=== PATIENT | female | born 1960 | race Caucasian/White ===

== ENCOUNTER → 2016-12-19 | Outpatient (CLI) | payer OTHER ==
[~2016-12-19] MED LIST: CALC-214 PO; CLB100 PO; HYDR-5688 PO; HYDR2TAB3 PO; KETO10TA PO; NRN300 PO; OXYC-57 PO; PRMVC; SM350 PO
[2016-12-19 12:06] LABS: BASO % 0.4 %; BASO ABS # 0.03 K/uL (0-0.2); COMPLETE YES; EOS % 2.2 %; HEMATOCRIT 40.1 % (37-47); IG% 0.3 %; LYMPH % 37.8 %; LYMPH ABS # 2.53 K/uL (1.2-3.4); MEAN CELL VOLUME 88.3 fL (80-100); MEAN CORPUSCULAR HEMOGLOBIN 29.3 pg (25-34); MEAN CORPUSCULAR HGB CONC 33.2 g/dl (32-36); MEAN PLATELET VOLUME 10.5 fL (7.4-10.4); NEUT % 52.3 %; PLATELET COUNT 236 K/uL (130-400); RED BLOOD COUNT 4.54 M/uL (4.2-5.4); WHITE BLOOD COUNT 6.69 K/uL (4.8-10.8)
[2016-12-19 12:21] LABS: BLOOD UREA NITROGEN 14 mg/dl (7-18); BUN/CREATININE RATIO 15.6 (10-20); CALCIUM 9.1 mg/dl (8.5-10.1); CARBON DIOXIDE 30 mmol/L (21-32); CHLORIDE 106 mmol/L (98-107); CREATININE 0.88 mg/dl (0.60-1.20); GLUCOSE 72 mg/dl (70-99); POTASSIUM 4.4 mmol/L (3.5-5.1); SODIUM 141 mmol/L (136-145)
== END | disposition home or self-care (01) ==
LOC: C.CPL 09:17
PROVIDERS: ATTEND Orthopaedic Surgery
DX: M75.02 Adhesive capsulitis of left shoulder (principal)

== ENCOUNTER → 2017-01-05 | Day surgery (SDC) | payer OTHER ==
[2016-12-21 11:14] VITALS: Ht 172.7 cm; Wt 65.9 kg
[~2017-01-05] VITALS: Ht 172.7 cm; Wt 65.9 kg
[~2017-01-05] MED LIST changes: +ATROPINE SULFATE 0.1 MG/ML 5ML SYR IV PRN; +BUPIVACAINE/EPINEPHRINE 0.25% 1:200,000 30 ML VIAL ONE; +CEFAZOLIN 2000MG IV PUSH 10 ML IV SCH; -CLB100 PO; +DEXAMETHASONE SOD INJ 4 MG/ML VIAL ONE; +EpHEDrine SULFATE 50MG/5ML SYR ONE; +EpHEDrine SULFATE INJ 50 MG/ML AMP IV PRN; +EpINEphrine INJ 1MG/ML AMP 1 MG/ML AMP ONE; +FENTANYL CITRATE INJ 50 MCG/1 ML 2 ML VIAL IV PRN; +FENTANYL CITRATE INJ 50 MCG/1 ML 2 ML VIAL ONE; -HYDR2TAB3 PO; +HYDROmorphone INJ 1 MG/ML SYR IV PRN; +LIDOCAINE HCL 2% 2 ML VIAL (20MG/ML) ONE; +METHYLPREDNISOLONE ACETATE 80 MG/ML VIAL ONE; +MIDAZOLAM HCL 1 MG/ML 2ML VIAL ONE; -NRN300 PO; +NURSING VERBAL MED ORDER ONE; +ONDANSETRON INJ 2 MG/ML 2 ML VIAL IV PRN; +ONDANSETRON INJ 2 MG/ML 2 ML VIAL ONE; +OXYCODONE/ACETAMINOPHEN 5-325 TAB PO PRN; +PROMETHAZINE HCL INJ 12.5 MG in SODIUM CHLORIDE 0.9% 50ML 50 ML IV PRN; +PROPOFOL IV EMULSION 10 MG/ML 20 ML VIAL IV ONE; +ROPIVACAINE 0.5% 5 MG/ML 30 ML VIAL ONE; -SM350 PO; +SODIUM CHLORIDE 0.9% 1000ML 1,000 ML IV SCH; +SODIUM CHLORIDE 0.9% NEBU SOLN 3 ML NEB ONE; +SUCCINYLCHOLINE CHLORIDE 20 MG/ML 10 ML VIAL IV ONE
--- NOTE | 2017-01-05 06:31 | History & Physical Bridge - [place] ---
H&P Re-Evaluation Bridge Note: I have examined the patient, reviewed the History & Physical and in the interval since the performance of the History & Physical I have noted the following changes of clinical significance: No changes noted
[2017-01-05] MEDS: LACTATED RINGER'S 1000ML 1,000 ML IV SCH ×2 (06:50→10:56)
--- NOTE | 2017-01-05 08:28 | [facility] Post Operative Brief Note ---
Immediate Operative Summary Operative Date Jan 05, 2017. Pre-Operative Diagnosis Adhesive Capsulitis of Left Shoulder Post-Operative Diagnosis Same Procedure(s) Performed Left Shoulder Arthroscopic Capsular Release Surgeon Dr. Rabago Svp Operations Surgeon(s) Ambrosio Torres PA-C Estimated Blood Loss 5ml Findings as above Specimens None Complication(s) None Disposition Recovery Room / PACU
--- NOTE | 2017-01-05 08:36 | Discharge Instructions-SurgCtr ---
Discharge Instructions Date of Service Jan 05, 2017. Visit Reason for Visit: Adhesive Capsulitis Of Shoulder Discharge Discharge Diagnosis / Problem: SAME ABOVE Discharge Goals Goal(s): Decrease discomfort, Improve function Activity Recommendations Activity Limitations: as noted below Lifting Limitations: gradually increase as tolerated Exercise/Sports Limitations: gradually increase as tolerated Shower/Bathe: tomorrow Anesthesia . Post Anesthesia Instructions: If you have had General Anesthesia or IV Sedation: * Do not drive today. * Resume driving when surgeon permits. * Do not make important decisions or sign legal documents today. * Call surgeon for: 1. Temperature elevations greater than 101 degrees F. 2. Uncontrollable pain. 3. Excessive bleeding. 4. Persistent nausea and vomiting. 5. Medication intolerance (nausea, vomiting or rash). * For nausea and vomiting use only clear liquids such as: tea, soda, bouillon until nausea subsides, then gradually increase diet as tolerated. * If you have any concerns or questions, call your surgeon's office. If physician is unavailable and it is an emergency, call 911 or go to the nearest emergency room. . Instructions / Follow-Up Instructions / Follow-Up MEDICATIONS: * Resume previous medications unless instructed otherwise by your surgeon. * Always take pain medication on a full stomach or with food to avoid upset stomach. * Do not drink alcohol or drive while taking narcotics. * Ibuprofen or Tylenol may be taken if narcotic not needed. SPECIAL CARE INSTRUCTIONS: __ None _X_ Keep extremity elevated and iced x 48 hours; apply ice 20-30 minutes 8-10 times/day. May remove at night. _X_ Sling (REMOVE AFTER 24 HOURS) __24 hrs/day __ Remove at night __ Shoulder Immobilizer __ 24 hrs/day __ Remove at night _X_ Dressing __ Maintain until seen in office, may shower with plastic over site _X_ Remove dressings in 24-48 hours and then may shower _X_ Cover incisions with band-aids after showering __ Do not remove steri-strips Call physician if chills or temperature rises above 102 degrees or pain unrelieved by prescribed pain medications at . . Diet Recommendations Home Diet: no limitations Fluid Restriction: None Procedures Procedures Performed: Left Shoulder Arthroscopic Capsular Release Pending Studies Studies pending at discharge: no Work Instructions Return To Work: 3 days (OR WHEN PAIN IS CONTROLLED ) Lifting Limitations: none Medical Emergencies . Who to Call and When: Medical Emergencies: If at any time you feel your situation is an emergency, please call 911 immediately. . Non-Emergent Contact Non-Emergency issues call your: Primary Care Provider Call Non-Emergent contact if: you have a fever, temperature is above 101.5 . . "Provider Documentation" section prepared by Franko Torres. .
--- NOTE | 2017-01-05 08:40 | OPERATIVE REPORT ---
DATE OF OPERATION: 01/05/2017 PREOPERATIVE DIAGNOSIS: Adhesive capsulitis of the left shoulder. POSTOPERATIVE DIAGNOSIS: Same. PROCEDURE: Left shoulder diagnostic arthroscopy with extensive debridement, lysis of adhesions and manipulation under anesthesia. SURGEON: Dr. Hugo Rabago. OIL RIG ROUGHNECK: Deep Torres PA-C, whose assistance was necessary for positioning the arm and helping with instrumentation. ANESTHESIA: General with a left interscalene nerve block. COMPLICATIONS: None. CONDITION: Stable to PACU. INDICATIONS: Babs is a pleasant 56-year-old female who presented to my office with complaints of pain and tightness of her left shoulder. Clinical examination was diagnostic for adhesive capsulitis of the left shoulder. After failing conservative treatment, she elected to undergo a capsular release. DESCRIPTION OF PROCEDURE: On 01/05/2017, she arrived at [facility] for the above procedure. She was seen in the preoperative holding area and the operative extremity was identified and signed. She was given a preoperative antibiotic and a left interscalene nerve block. She was taken back to the operating room, laid on the table in supine position and put under general anesthesia. She was then put into the beachchair position. The left shoulder was prepped and draped in the sterile fashion. Time-out was done and the patient and operative extremity was properly identified. On preoperative physical examination, she had about 45 degrees of abduction, 30 degrees of external rotation, and 0 degrees of internal rotation. A gentle manipulation was done under anesthesia to help facilitate insertion of the arthroscope. The scope was then placed in the posterior portal. Diagnostic arthroscopy showed significant redness and thickening of the rotator interval as well as the middle and inferior glenohumeral ligaments. There was no cartilage damage on the humeral head or the glenoid. The rotator cuff was intact. The biceps khanh went through a normal size biceps khanh mechanism. An anterior portal was made and a shaver and ablator were used to start an extensive debridement and completely open up the rotator interval. Time was spent ensuring that the interval was opened up from the base of the coracoid all the way towards the biceps khanh mechanism. An ablator was then used to start lysis of adhesions to completely release the middle and anterior inferior glenohumeral ligament. Care was taken not to disrupt the subscapularis or the axillary nerve. A shaver was used to continue debridement and remove all redundant capsule back to stable margins. Ablator was once again used to lyse any additional adhesions that were felt along the anterior rim of the glenoid. A shaver was used to remove any further unstable tissue fragments. An ablator was used to control hemostasis. After I was happy with lysis of adhesions and debridement, arthroscopic instruments were removed from the shoulder. A gentle manipulation was once again done under anesthesia and I was able to get full range of motion of the shoulder. The portal sites were then closed with 3-0 nylon suture. The shoulder was then injected with 80 mg of Depo-Medrol. She was then placed in a soft dressing and regular arm sling. She was then extubated, transferred to a litter and taken to the postanesthesia care unit in stable condition. She tolerated the procedure well. I attest to the content of the Intraoperative Record and any orders documented therein. Any exception s are noted below.
[2017-01-05 11:55] VITALS: BP 99/62; PULSE 69; O2SAT 95
--- NOTE | 2017-01-05 12:15 | Anesthesia Progress Nt - [facility] ---
Anesthesia Post Op Note Date & Time Jan 05, 2017 at 12:05 Vital Signs Pain Intensity: 2 Vital Signs Past 12 Hours Date Time Temp Pulse Resp B/P (MAP) Pulse Ox O2 Delivery O2 Flow Rate FiO2 01/05/17 11:33 37.5 64 22 105/63 95 Room Air 01/05/17 11:22 63 22 95 01/05/17 11:22 37.5 64 22 01/05/17 11:21 116/60 01/05/17 11:17 62 16 01/05/17 11:17 63 16 95 01/05/17 11:15 97/60 01/05/17 11:12 69 20 96 01/05/17 11:12 69 20 01/05/17 11:11 107/54 01/05/17 11:07 67 17 97 01/05/17 11:07 66 17 01/05/17 11:05 107/61 01/05/17 11:02 67 19 01/05/17 11:02 66 19 97 01/05/17 11:01 102/67 01/05/17 10:57 64 16 97 01/05/17 10:57 63 16 01/05/17 10:56 109/62 01/05/17 10:52 65 17 96 01/05/17 10:52 65 17 01/05/17 10:51 111/63 01/05/17 10:47 63 28 01/05/17 10:47 61 28 97 01/05/17 10:46 110/68 01/05/17 10:42 77 19 100 01/05/17 10:42 76 19 01/05/17 10:41 112/65 01/05/17 10:37 69 100 01/05/17 10:37 69 01/05/17 10:36 103/64 01/05/17 10:32 73 98 01/05/17 10:32 73 01/05/17 10:31 122/68 01/05/17 10:27 75 100 01/05/17 10:27 75 01/05/17 10:26 116/81 01/05/17 10:22 123/65 01/05/17 10:17 78 01/05/17 10:17 78 100 01/05/17 10:16 90/80 01/05/17 09:36 36.2 55 16 102/67 (79) 100 Room Air 01/05/17 09:31 107/62 01/05/17 09:30 56 7 100 01/05/17 09:30 55 7 01/05/17 09:26 115/65 01/05/17 09:25 61 16 100 01/05/17 09:25 61 16 01/05/17 09:21 106/67 01/05/17 09:20 63 16 01/05/17 09:20 72 16 01/05/17 09:19 60 8 100 01/05/17 09:19 59 8 01/05/17 09:16 103/66 01/05/17 09:14 53 10 100 01/05/17 09:14 54 10 01/05/17 09:11 104/63 01/05/17 09:10 36.8 54 16 104/63 100 Mask 8 01/05/17 09:09 60 11 100 01/05/17 09:09 61 11 01/05/17 09:06 107/68 01/05/17 09:04 58 7 100 01/05/17 09:04 58 7 01/05/17 09:01 110/64 01/05/17 08:59 60 12 01/05/17 08:59 61 12 100 01/05/17 08:56 117/72 01/05/17 08:54 69 25 100 01/05/17 08:54 68 25 01/05/17 08:51 107/58 01/05/17 08:49 61 14 100 01/05/17 08:49 64 14 01/05/17 08:46 99/62 01/05/17 08:44 58 12 01/05/17 08:44 58 12 100 01/05/17 08:41 96/59 01/05/17 08:39 59 12 01/05/17 08:39 58 12 100 01/05/17 08:37 102/48 01/05/17 08:32 36 16 102/48 100 Diffusion Mask 6 01/05/17 07:49 65 16 100 01/05/17 07:49 65 01/05/17 07:48 63 01/05/17 07:48 63 4 99 01/05/17 07:47 60 4 99 01/05/17 07:47 60 01/05/17 07:46 102/66 01/05/17 07:42 58 01/05/17 07:42 58 3 99 01/05/17 07:41 102/58 01/05/17 07:39 58 5 99 01/05/17 07:39 58 01/05/17 07:36 103/54 01/05/17 07:34 55 6 99 01/05/17 07:34 55 01/05/17 07:33 55 5 100 01/05/17 07:33 55 01/05/17 07:31 99/67 01/05/17 07:28 59 01/05/17 07:28 59 11 100 01/05/17 07:26 96/60 01/05/17 07:23 55 01/05/17 07:23 56 18 100 01/05/17 07:22 55 01/05/17 07:22 56 9 100 01/05/17 07:22 55 01/05/17 07:22 56 9 100 01/05/17 07:21 100/71 01/05/17 07:21 100/71 01/05/17 07:17 64 10 100 01/05/17 07:17 62 01/05/17 07:17 62 01/05/17 07:17 64 10 100 01/05/17 07:16 111/59 01/05/17 07:16 111/59 01/05/17 07:12 79 01/05/17 07:12 79 0 100 01/05/17 07:12 79 0 100 01/05/17 07:12 79 01/05/17 07:07 67 0 100 01/05/17 07:07 66 01/05/17 07:07 66 01/05/17 07:07 67 0 100 01/05/17 07:02 72 0 01/05/17 07:02 72 0 01/05/17 06:57 68 01/05/17 06:57 68 01/05/17 06:57 67 0 99 01/05/17 06:57 67 0 99 01/05/17 06:31 36.7 73 16 102/67 (79) 100 Room Air Notes Mental Status: alert / awake / arousable, participated in evaluation Pt Amnestic to Procedure: Yes Nausea / Vomiting: adequately controlled Pain: adequately controlled Airway Patency, RR, SpO2: stable & adequate BP & HR: stable & adequate Hydration State: stable & adequate Anesthetic Complications: no major complications apparent Pt complained of needing to cough often and had some inspiratory stridor upon sitting up in phase II PACU. No SOB, CP or sore throat per pt. Oxygen saturation 98-100% the whole time. Pt was taken back to phase I PACU and was given nebulized saline to help moisten the [employer] passages with some improvement. Pt was also anxious and 1mg of IV Versed was given. Pt was reassured and was monitored in phase I for another hour. Pt was doing better without any stridors. Dr. Cochran, ENT, was also consulted briefly regarding her condition and stated to just monitor her since there was no hoarseness or decrease oxygen saturation. Pt was explained and was told that we can take a look with a fiberoptic if needed, but she states that she was feeling better. Pt was moved back to phase II and monitored for another 30 minutes. Stridor has resolved, O2 sats still maintained above 96% in RA. Pt reports feeling better. Was told if condition worsened with SOB, CP later today to go to the ED for evaluation. Pt and agree with plan. Pt is ready for d/c
== END | disposition home or self-care (01) ==
LOC: X.SURG 06:18
PROVIDERS: ATTEND Orthopaedic Surgery
DX: M75.02 Adhesive capsulitis of left shoulder (principal); Z98.890 Other specified postprocedural states

== ENCOUNTER → 2017-05-16 | Outpatient (CLI) | payer OTHER ==
[~2017-05-16] MED LIST changes: -ATROPINE SULFATE 0.1 MG/ML 5ML SYR IV PRN; -BUPIVACAINE/EPINEPHRINE 0.25% 1:200,000 30 ML VIAL ONE; -CEFAZOLIN 2000MG IV PUSH 10 ML IV SCH; -DEXAMETHASONE SOD INJ 4 MG/ML VIAL ONE; -EpHEDrine SULFATE 50MG/5ML SYR ONE; -EpHEDrine SULFATE INJ 50 MG/ML AMP IV PRN; -EpINEphrine INJ 1MG/ML AMP 1 MG/ML AMP ONE; -FENTANYL CITRATE INJ 50 MCG/1 ML 2 ML VIAL IV PRN; -FENTANYL CITRATE INJ 50 MCG/1 ML 2 ML VIAL ONE; -HYDROmorphone INJ 1 MG/ML SYR IV PRN; -LIDOCAINE HCL 2% 2 ML VIAL (20MG/ML) ONE; -METHYLPREDNISOLONE ACETATE 80 MG/ML VIAL ONE; -MIDAZOLAM HCL 1 MG/ML 2ML VIAL ONE; -NURSING VERBAL MED ORDER ONE; -ONDANSETRON INJ 2 MG/ML 2 ML VIAL IV PRN; -ONDANSETRON INJ 2 MG/ML 2 ML VIAL ONE; -OXYCODONE/ACETAMINOPHEN 5-325 TAB PO PRN; -PROMETHAZINE HCL INJ 12.5 MG in SODIUM CHLORIDE 0.9% 50ML 50 ML IV PRN; -PROPOFOL IV EMULSION 10 MG/ML 20 ML VIAL IV ONE; -ROPIVACAINE 0.5% 5 MG/ML 30 ML VIAL ONE; -SODIUM CHLORIDE 0.9% 1000ML 1,000 ML IV SCH; -SODIUM CHLORIDE 0.9% NEBU SOLN 3 ML NEB ONE; -SUCCINYLCHOLINE CHLORIDE 20 MG/ML 10 ML VIAL IV ONE
--- NOTE | 2017-05-17 14:14 | MAMMOGRAPHY REPORT ---
BILATERAL DIGITAL SCREENING MAMMOGRAM TOMOSYNTHESIS WITH CAD: 05/16/2017 CLINICAL HISTORY: Routine screening. Patient has no complaints. TECHNIQUE: Breast tomosynthesis in addition to standard 2D mammography was performed. Current study was also evaluated with a Computer Aided Detection (CAD) system. COMPARISON: Comparison is made to exams dated: 12/03/2015 mammogram, 10/14/2014 mammogram, 01/09/2013 mammogram, 06/29/2011 mammogram, 05/11/2010 mammogram, and 12/08/2009 mammogram - [facility]. BREAST COMPOSITION: There are scattered areas of fibroglandular density in both breasts. FINDINGS: No suspicious masses, calcifications, or areas of architectural distortion are noted in ei ther breast. There has been no significant interval change compared to prior exams. Asymmetry in the right superior anterior breast on the MLO view is stable compared to prior exams including the 2014 and 2010 exams and is considered benign given long-term stability. IMPRESSION: ACR BI-RADS CATEGORY 2: BENIGN There is no mammographic evidence of malignancy. A 1 year screening mammogram is recommended. The pa tient will receive written notification of the results. Approximately 10% of breast cancers are not detected with mammography. A negative mammographic report should not delay biopsy if a clinically suggestive mass is present. Kalie Bucio M.D. /:05/16/2017 14:53:29 Jigsaw Operator: Rajni REYES)([place]), [facility] letter sent: Normal 1/2 BI-RADS Code: ACR BI-RADS Category 2: Benign
== END | disposition home or self-care (01) ==
LOC: C.MAMM 14:29
PROVIDERS: ATTEND Internal Medicine
DX: Z12.31 Encounter for screening mammogram for malignant neoplasm of breast (principal)

== ENCOUNTER → 2017-07-11 | Outpatient (CLI) | payer OTHER ==
[~2017-07-11] MED LIST changes: -KETO10TA PO; -OXYC-57 PO
[2017-07-11 13:36] LABS: ALBUMIN 3.8 gm/dl (3.4-5.0); ALT/SGPT 29 U/L (12-78); AST/SGOT 20 U/L (15-37); BLOOD UREA NITROGEN 14 mg/dl (7-18); CALCIUM 8.6 mg/dl (8.5-10.1); CARBON DIOXIDE 30 mmol/L (21-32); CREATININE 0.84 mg/dl (0.60-1.20); GLUCOSE 93 mg/dl (70-99); POTASSIUM 4.8 mmol/L (3.5-5.1); SODIUM 141 mmol/L (136-145)
[2017-07-11 13:47] LABS: ALKALINE PHOSPHATASE 62 U/L (45-117); CHOLESTEROL 197 mg/dl (0-200); LDL CHOLESTEROL CALCULATED 102 mg/dl; TOTAL PROTEIN 6.6 gm/dl (6.4-8.2)
== END | disposition home or self-care (01) ==
LOC: C.LAB1850 08:39
PROVIDERS: ATTEND Internal Medicine
DX: Z13.220 Encounter for screening for lipoid disorders (principal); M81.0 Age-related osteoporosis without current pathological fracture; R94.6 Abnormal results of thyroid function studies